=== PATIENT | male | born 1995 | race Two or more races ===

== ENCOUNTER → 2020-08-19 | Emergency (ER) | payer OTHER ==
[~2020-08-19] VITALS: Ht 190.5 cm; Wt 108.9 kg
[~2020-08-19] MED LIST: AMOX-CLAV 875-1 EACH PO; MUPIROCIN1 G1 TOP
== END | disposition home or self-care (01) ==
LOC: ER 13:23
DX: S60.571A Other superficial bite of hand of right hand, initial encounter (principal); W54.0XXA Bitten by dog, initial encounter; Y93.89 Activity, other specified; Y92.098 Other place in other non-institutional residence as the place of occurrence of the external cause; Y99.8 Other external cause status